=== PATIENT | male | born 1995 ===

== ENCOUNTER 2016-11-27 07:48 | Observation (INO) | payer OTHER ==
[~2016-11-27] VITALS: Ht 180.3 cm; Wt 79.5 kg
[~2016-11-27 07:48] MED LIST: IMU PO; MAG OXIDE250 MG PO; MULTIPLE VIT PO; P5 PO; SANDIMMUNE25 MG PO; TOPXL50 PO; TUMSROLL PO
[2016-11-27 09:16] LABS: BASOPHILS 0.4 %; BASOPHILS ABSOLUTE 0.03 10/3/uL (0.0-0.16); EOSINOPHILS 1.3 %; HEMATOCRIT 34.3 % (40.0-51.0); HEMOGLOBIN 12.4 g/dL (13.6-17.8); LYMPHOCYTES 35.7 %; MEAN CORPUS HGB CONC 36.2 g/dL (32.0-36.0); MEAN CORPUSCULAR HEMOGLOB 32.5 pg (26.0-34.0); MEAN PLATELET VOLUME 10.9 fL (9.2-13.0); MONOCYTES 7.9 %; NEUTROPHILS 54.7 %; NEUTROPHILS ABSOLUTE 4.14 10/3/uL (2.02-8.40); PLATELET COUNT 227 10/3/uL (150-400); RBC DISTRIBUTION WIDTH 12.3 % (12.0-16.0); RED CELL COUNT 3.81 10/6/uL (4.7-6.1); WHITE BLOOD CELLS 7.6 10/3/uL (4.5-10.5)
[2016-11-27 09:21] LABS: MANUAL DIFF NO %
[2016-11-27 09:25] LABS: INTERNATIONAL NORMAL RATI 1.1 UNITS (-); PROTIME (NOT ORD) 13.9 SEC (12.0-14.5)
[2016-11-27 09:26] LABS: PARTIAL THROMBO TIME 28.1 SEC (22.5-37.2)
[2016-11-27 09:51] LABS: CHLORIDE, SERUM 104 MMOL/L (96-112); CO2 (CARBON DIOXIDE) 27 MMOL/L (24-34); GFR AFRICAN AMERICAN 48 ML/MIN (>=60); GFR NON AFRICAN AMERICAN 41 ML/MIN (>=60); GLUCOSE, SERUM 93 MG/DL (60-99); SODIUM, SERUM 138 MMOL/L (135-148)
[2016-11-27 09:52] LABS: BUN (BLOOD UREA NITROGEN) 25 MG/DL (6-23); CREATININE 2.18 MG/DL (0.70-1.30); POTASSIUM, SERUM 4.3 MMOL/L (3.5-5.3)
[2016-11-28 09:20] LABS: HEMATOCRIT 34.2 % (40.0-51.0); HEMOGLOBIN 12.4 g/dL (13.6-17.8)
== END 2016-11-28 09:45 | disposition home or self-care (01) ==
LOC: RADHOLD 07:48 → IMGHOLD 07:48 → SSU1 07:49 → RADHOLD 07:58 → IMGHOLD 07:58 → RADHOLD 08:50 → IMGHOLD 10:00 → RADHOLD 16:12 → SSU1 16:12 → IMGHOLD 16:13 → SSU1 16:13 → IMGHOLD 11-28 09:45 → SSU1 11-28 09:45
PROVIDERS: Internal Medicine Nephrology
PROC: 0TB03ZX Excision of Right Kidney, Percutaneous Approach, Diagnostic (ICD-10-PCS; principal; 2016-11-27)
DX: T86.10 Unspecified complication of kidney transplant (principal); B34.8 Other viral infections of unspecified site; I10 Essential (primary) hypertension; Z13.89 Encounter for screening for other disorder; Z48.22 Encounter for aftercare following kidney transplant; Z51.81 Encounter for therapeutic drug level monitoring; Z79.899 Other long term (current) drug therapy; Z90.89 Acquired absence of other organs
CPT/HCPCS: 36415; 50200; 77012; 80048; 85014; 85018; 85025; 85610; 85730; 86850; 86900; 86901; 86920; 88305; A9270-GY; G0378; J1170; J2250; J2405; J3010; J7502